=== PATIENT | female | born 1965 | race Caucasian/White ===

== ENCOUNTER → 2020-11-30 | Outpatient (CLI) | payer OTHER ==
[2020-11-30 15:56] LABS: HCT 43.1 % (37.2-46.3); MCHC 32.5 g/dL (32.0-37.0); MCV 92.5 fL (80.0-97.0); Platelet Count 180 X 10*3/uL (140-440); RBC 4.66 X 10*6/uL (4.10-5.20); RDW 12.5 % (11.5-14.5); WBC 3.39 X 10*3/uL (4.50-10.00)
[2020-11-30 23:30] LABS: African American GFR (CKD) 111.5 (60.0-200.0); Anion Gap 9.2 mmol/L (4.00-12.00); BUN/Creat Ratio 21.43 Ratio (12.00-20.00); Calcium 9.3 mg/dL (8.7-10.3); Carbon Dioxide 26.8 mmol/L (21.6-31.8); Chol/HDL Ratio 3.13; LDL Cholesterol,Calculated 160.6 mg/dL (0.0-131.0); Non-African American GFR(CKD) 96.2 (60.0-200.0); VLDL Calculation 18.4 mg/dL (5.00-40.00)
== END | disposition home or self-care (01) ==
LOC: LABWHC1 08:30
PROVIDERS: ATTEND Internal Medicine Cardiovascular Disease
DX: E78.2 Mixed hyperlipidemia (principal)
CPT/HCPCS: 36415; 80048; 80061; 84450; 84460; 85027

== ENCOUNTER → 2020-12-21 | Outpatient (CLI) | payer OTHER ==
[2020-12-21 11:32] LABS: Basophils # (A) 0.02 X 10*3/uL (0.00-0.10); Basophils % (A) 0.6 %; Eosinophils # (A) 0.08 X 10*3/uL (0.04-0.35); Eosinophils % (A) 2.5 %; HCT 32.2 % (37.2-46.3); HGB 10.3 g/dL (12.0-15.0); Lymphocytes # (A) 0.96 X 10*3/uL (0.90-5.00); Lymphocytes % (A) 29.5 %; MCH 29.9 pg (27.0-32.0); MCV 93.3 fL (80.0-97.0); Mean Platelet Volume 10.2 fL (9.5-12.2); Monocytes # (A) 0.29 X 10*3/uL (0.20-1.00); Monocytes % (A) 8.9 %; Neutrophils % (A) 58.5 %; Platelet Count 177 X 10*3/uL (140-440); RBC 3.45 X 10*6/uL (4.10-5.20); RDW 12.8 % (11.5-14.5); WBC 3.25 X 10*3/uL (4.50-10.00)
[2020-12-21 14:25] LABS: African American GFR (CKD) 117.3 (60.0-200.0); Anion Gap 8.8 mmol/L (4.00-12.00); Carbon Dioxide 27.2 mmol/L (21.6-31.8); Chol/HDL Ratio 3.14; LDL Cholesterol,Calculated 126.4 mg/dL (0.0-131.0); Non-African American GFR(CKD) 101.2 (60.0-200.0); Potassium 4.2 mmol/L (3.5-5.5); VLDL Calculation 14.6 mg/dL (5.00-40.00)
[2020-12-21 14:33] LABS: T4, Free (Free Thyroxine) 1.1 ng/dL (0.80-1.80)
[2020-12-21 16:07] LABS: Hemoglobin A1C 5.7 % (4.0-6.0)
== END | disposition home or self-care (01) ==
LOC: LABWHC1 07:20
PROVIDERS: ATTEND Internal Medicine
DX: I10 Essential (primary) hypertension (principal); E03.9 Hypothyroidism, unspecified; E78.5 Hyperlipidemia, unspecified; E56.9 Vitamin deficiency, unspecified
CPT/HCPCS: 36415; 80051; 80061; 82306; 82565; 82947; 83036; 84439; 84443; 84450; 84460; 84481; 84520; 85025

== ENCOUNTER → 2021-01-05 | Outpatient (CLI) | payer OTHER ==
--- NOTE | 2021-01-05 10:33 | XR ---
EXAMINATION TYPE: XR chest 2V DATE OF EXAM: 01/05/2021 COMPARISON: NONE HISTORY: Shortness of breath TECHNIQUE: Frontal and lateral views of the chest are obtained. FINDINGS: Scattered senescent parenchymal changes noted. Hyperinflation compatible with COPD. No evidence for infiltrate. No evidence for atelectasis. Heart size is stable. Mediastinal structures are stable and grossly unremarkable. No evidence for hilar prominence. Degenerative changes dorsal spine. IMPRESSION: 1. No evidence for acute pulmonary disease.
== END | disposition home or self-care (01) ==
LOC: RADXRMAIN 09:28
PROVIDERS: ATTEND Internal Medicine
DX: J18.9 Pneumonia, unspecified organism (principal)
CPT/HCPCS: 71046

== ENCOUNTER → 2021-01-26 | Outpatient (CLI) | payer OTHER ==
--- NOTE | 2021-01-30 09:32 | MM ---
Reason for exam: screening (asymptomatic). Last mammogram was performed 6 years and 8 months ago. History: Patient is postmenopausal. Benign excisional biopsy of the left breast, 2003. Physical Findings: A clinical breast exam by your physician is recommended on an annual basis and results should be correlated with mammographic findings. MG Screening Mammo w CAD Bilateral CC and MLO view(s) were taken. Prior study comparison: May 26, 2014, mammogram, performed at [facility]. Post surgical change left breast. Generator device over the left pectoralis. Nodular asymmetric density central outer right CC view anteriorly is more defined. ASSESSMENT: Incomplete: need additional imaging evaluation, BI-RAD 0 RECOMMENDATION: Special view mammogram of the right breast. (3D) If lesion persists on supplemental views, image directed ultrasound is recommended. [facility] will attempt to contact patient to return for supplemental views and ultrasound if indicated.
== END | disposition home or self-care (01) ==
LOC: RADMAMWWP 08:02
PROVIDERS: ATTEND Internal Medicine
DX: Z12.31 Encounter for screening mammogram for malignant neoplasm of breast (principal); Z78.0 Asymptomatic menopausal state
CPT/HCPCS: 77067

== ENCOUNTER → 2021-02-02 | Outpatient (CLI) | payer OTHER ==
--- NOTE | 2021-02-02 11:18 | MM ---
Reason for exam: additional evaluation requested from abnormal screening. Last mammogram was performed less than 1 month ago. History: Patient is postmenopausal. Benign excisional biopsy of the left breast, 2004. Physical Findings: Nurse did not find any significant physical abnormalities on exam. MG Work Up Mamm w CAD RT Spot compression CC, spot compression MLO, and ML view(s) were taken of the right breast. Prior study comparison: January 26, 2021, bilateral MG screening mammo w CAD. May 26, 2014, mammogram, performed at [facility]. The breast tissue is heterogeneously dense. This may lower the sensitivity of mammography. The patient reports chronic nipple inversion with no change. The lateral subareolar asymmetric density disperses on spot view. No persisting abnormality is seen. These results were verbally communicated with the patient and result sheet given to the patient on 02/02/21. ASSESSMENT: Benign, BI-RAD 2 RECOMMENDATION: Return to routine screening mammogram schedule for both breasts.
== END | disposition home or self-care (01) ==
LOC: RADMAMWWP 08:51
PROVIDERS: ATTEND Internal Medicine
DX: N64.89 Other specified disorders of breast (principal); Z78.0 Asymptomatic menopausal state
CPT/HCPCS: 77065

== ENCOUNTER → 2023-06-05 | Outpatient (CLI) | payer OTHER ==
--- NOTE | 2023-06-05 09:52 | XR ---
EXAMINATION TYPE: XR knee complete LT DATE OF EXAM: 06/05/2023 9:26 AM CLINICAL INDICATION:Female, 57 years old with history of [id number], [id number] PAIN COMPARISON: None. TECHNIQUE: XR knee complete LT; examined in Frontal, lateral and oblique projections. FINDINGS: No evidence of any acute osseous pathology, soft tissue swelling, or joint effusion is no oliverio. Minimal osteophyte formation involving the femoral condyles, tibial plateau and patella. Mild joint space narrowing. IMPRESSION: 1. No acute osseous pathology. 2. Mild tricompartmental osteoarthritic changes.
--- NOTE | 2023-06-05 09:52 | XR ---
EXAMINATION TYPE: XR Hip Complete LT DATE OF EXAM: 06/05/2023 9:26 AM CLINICAL INDICATION:Female, 57 years old with history of [id number], [id number] PAIN; [facility] COMPARISON: None. TECHNIQUE: XR Hip Complete LT; hip was examined in the frontal and lateral projections and a AP pelvi s. FINDINGS: No evidence for acute process, joint dislocation or significant soft tissue swelling. Osteo phyte formation of the superior acetabulum of the hip. IMPRESSION: 1. No evidence for acute process. 2. Mild hip osteoarthrosis.
[2023-06-05 15:30] LABS: ALT 13 U/L (8-44); AST 20 U/L (13-35); Blood Urea Nitrogen 18.1 mg/dL (9.0-27.0); Carbon Dioxide 27.4 mmol/L (21.6-31.8); Chloride 105 mmol/L (96-109); Chol/HDL Ratio 3.12 Ratio; Glucose 87 mg/dL (70-110); LDL Cholesterol,Calculated 173.1 mg/dL (0.0-131.0); Potassium 4.7 mmol/L (3.5-5.5); Sodium 144 mmol/L (135-145); VLDL Calculation 18.38 mg/dL (5.00-40.00)
[2023-06-05 15:32] LABS: Basophils # (A) 0.03 X 10*3/uL (0.00-0.10); Basophils % (A) 0.6 %; Eosinophils # (A) 0.07 X 10*3/uL (0.04-0.35); Eosinophils % (A) 1.5 %; HCT 46.7 % (37.2-46.3); HGB 14.9 g/dL (12.0-15.0); Lymphocytes # (A) 1.72 X 10*3/uL (0.90-5.00); Lymphocytes % (A) 37.1 %; MCH 29.2 pg (27.0-32.0); MCHC 31.9 g/dL (32.0-37.0); MCV 91.4 FL (80.0-97.0); Mean Platelet Volume 10.2 FL (9.5-12.2); Monocytes # (A) 0.32 X 10*3/uL (0.20-1.00); Monocytes % (A) 6.9 %; NRBC Per 100 WBC 0 X 10*3/uL (0.00-0.01); Neutrophils # (A) 2.49 X 10*3/uL (1.80-7.70); Neutrophils % (A) 53.7 %; Platelet Count 190 X 10*3/uL (140-440); RBC 5.11 X 10*6/uL (4.10-5.20); WBC 4.64 X 10*3/uL (4.50-10.00)
== END | disposition home or self-care (01) ==
LOC: LABWHC1 08:52
PROVIDERS: ATTEND Internal Medicine
DX: I10 Essential (primary) hypertension (principal); E78.5 Hyperlipidemia, unspecified; M25.562 Pain in left knee; M79.605 Pain in left leg
CPT/HCPCS: 36415; 73502; 80051; 80061; 82306; 82565; 82947; 84450; 84460; 84520; 85025

== ENCOUNTER → 2024-08-17 | Outpatient (CLI) | payer OTHER ==
[2024-08-17 15:16] LABS: ALT 18 U/L (8-44); AST 27 U/L (13-35); Chol/HDL Ratio 3.26 Ratio; LDL Cholesterol,Calculated 179.3 mg/dL (0.0-131.0); VLDL Calculation 14.94 mg/dL (5.00-40.00)
== END | disposition home or self-care (01) ==
LOC: LABWHC1 08:47
PROVIDERS: ATTEND Internal Medicine Cardiovascular Disease
DX: E78.2 Mixed hyperlipidemia (principal)
CPT/HCPCS: 36415; 80061; 84450; 84460